=== PATIENT | female | born 1995 | race African-American/Black ===

== ENCOUNTER 2017-02-28 09:42 | Inpatient (IN) ==
[2017-02-28] MEDS ORDERED: ONDANSETRON 4 MG/2 ML VIAL IV PRN (12:26)
[2017-02-28 12:59] LABS: Basophils % 0.4 % (0.0-0.8); Eosinophils % 0.7 % (0.00-10.9); Hematocrit 38.5 VOL% (35.7-47.0); Hemoglobin 12.8 GM/DL (12.0-16.0); Immature Granulocytes % 0.5 %; Immature Granulocytes Absolute 0.03 #; Lymphocytes # 1.4 10*3/uL (1.4-4.0); Lymphocytes % 25.4 % (21.3-54.2); Mean Corpuscular HGB Conc 33.2 GM/DL (32-36); Mean Corpuscular Hemoglobin 27 PG (27-34); Mean Corpuscular Volume 81.2 FL (87-102); Mean Platelet Volume 10.9 FL (9.6-12.0); Monocytes # 0.5 10*3/uL (0.11-0.8); Monocytes % 8.8 % (1.7-12.7); Neutrophils # 3.6 10*3/uL (1.4-7.4); Neutrophils % 64.2 % (38.7-73.9); Platelet Count 205 T/CUMM (130-400); Red Blood Count 4.74 MC/CUMM (3.8-5.5); Red Cell Distribution Width 17.1 % (9.3-17.3); White Blood Count 5.6 T/CUMM (4-12)
[2017-02-28] MEDS: LACTATED RINGERS 1,000 ML IV SCH (13:04)
[2017-02-28] MEDS ORDERED: BUTORPHANOL 2 MG/ML VIAL IV PRN (14:08)
[2017-02-28] MEDS: AMPICILLIN INJ 2,000 MG in SODIUM CHLORIDE 0.9% 100 ML IV SCH ×2 (14:09→20:52)
[2017-02-28] MEDS ORDERED: diphenhydrAMINE 50 MG/1 ML VIAL IV PRN ×2 (17:43)
[2017-02-28] MEDS ORDERED: ONDANSETRON 4 MG/2 ML VIAL IV ONE (17:43)
[2017-02-28] MEDS ORDERED: ePHEDrine 50 MG/ML AMP IV PRN (17:43)
[2017-02-28] MEDS ORDERED: CITRIC ACID/SODIUM CITRATE 30 ML UDCUP PO ONE (17:43)
[2017-02-28] MEDS ORDERED: PROMETHAZINE 25 MG/1 ML VIAL IM ONE (17:43)
[2017-02-28] MEDS ORDERED: hydrOXYzine HCL 25 MG/1 ML VIAL IM PRN (17:43)
[2017-02-28] MEDS ORDERED: FAMOTIDINE 20 MG/2 ML VIAL IV ONE (17:43)
[2017-02-28] MEDS ORDERED: LACTATED RINGERS 1,000 ML IV SCH (18:00)
[2017-02-28] MEDS ORDERED: fentaNYL 2 MCG/ROPIV 0.2% EPID 150 ML EPIDURAL SCH (18:00)
[2017-02-28 21:22] LABS: Apearance,Urine CLEAR (Clear); Bilirubin,Urine Negative (Negative); Blood, Urine Negative (Negative); Glucose,Urine (UA) Negative (Negative); Ketones,Urine 20 mg/dL (Negative); Mucus,Urine Occasional /LPF (Occasional); Nitrite,Urine Negative (Negative); Protein,Urine Negative; RBC,Urine 9 /HPF (0-4); Squamous Epithelial Cell,Urine Occasional /HPF (0-10); Urine Color Yellow (Yellow); Urine Specific Gravity 1.013 (1.001-1.035); WBC,Urine 1 /HPF (0-6)
[2017-02-28] MEDS ORDERED: OXYTOCIN/LR 20 UNIT/1,000 ML BAG IV ONE (23:06)
[2017-02-28] MEDS ORDERED: OXYTOCIN/LR 20 UNIT/1,000 ML BAG IV SCH (23:30)
[2017-03-01] MEDS: LACTATED RINGERS 1,000 ML IV SCH (01:10)
[2017-03-01] MEDS: AMPICILLIN INJ 2,000 MG in SODIUM CHLORIDE 0.9% 100 ML IV SCH (02:11)
[2017-03-01] MEDS ORDERED: miSOPROStol 200 MCG TABLET ONE (04:03)
[2017-03-01] MEDS ORDERED: TRANEXAMIC ACID 1,000 MG/10 ML VIAL IV ONE (04:49)
[2017-03-01] MEDS ORDERED: LIDOCAINE 1% 50 ML VIAL ONE (04:49)
[2017-03-01] MEDS ORDERED: METHYLERGONOVINE 0.2 MG/1 ML AMP ONE (04:49)
[2017-03-01] MEDS ORDERED: BENZOCAINE/MENTHOL LOZENGE 18/BOX PO PRN (05:36)
[2017-03-01] MEDS ORDERED: BISACODYL 10 MG SUPP RECTAL PRN (05:36)
[2017-03-01] MEDS ORDERED: ONDANSETRON 4 MG/2 ML VIAL IV PRN (05:36)
[2017-03-01] MEDS ORDERED: ACETAMINOPHEN 325 MG TABLET PO PRN (05:36)
[2017-03-01] MEDS ORDERED: MAGNESIUM HYDROXIDE SUSP 30 ML UDCUP PO PRN (05:36)
[2017-03-01] MEDS ORDERED: LACTATED RINGERS 1,000 ML IV SCH (06:00)
[2017-03-01] MEDS: IBUPROFEN 800 MG TABLET PO PRN ×2 (07:11→19:28)
[2017-03-01] MEDS: oxyCODONE/ACETAMINOPHEN 5-325 MG TABLET PO PRN ×2 (07:12→19:27)
[2017-03-01] MEDS ORDERED: OXYTOCIN/LR 20 UNIT/1,000 ML BAG IV ONE (07:15)
[2017-03-01] MEDS: DOCUSATE SODIUM 100 MG CAPSULE PO PRN (08:54)
[2017-03-01] MEDS ORDERED: ceFAZolin 1,000 MG in SYRINGE 1 EACH IV SCH (12:00)
[2017-03-02 06:08] LABS: Basophils % 0.2 % (0.0-0.8); Eosinophils # 0.1 10*3/uL (0.0-0.87); Eosinophils % 0.6 % (0.00-10.9); Hematocrit 28.6 VOL% (35.7-47.0); Immature Granulocytes % 0.5 %; Immature Granulocytes Absolute 0.06 #; Lymphocytes # 2.6 10*3/uL (1.4-4.0); Lymphocytes % 23.6 % (21.3-54.2); Mean Corpuscular HGB Conc 31.5 GM/DL (32-36); Mean Corpuscular Hemoglobin 26 PG (27-34); Mean Corpuscular Volume 82.4 FL (87-102); Mean Platelet Volume 10.5 FL (9.6-12.0); Monocytes % 8.9 % (1.7-12.7); Neutrophils # 7.4 10*3/uL (1.4-7.4); Neutrophils % 66.2 % (38.7-73.9); Platelet Count 161 T/CUMM (130-400); Red Blood Count 3.47 MC/CUMM (3.8-5.5); Red Cell Distribution Width 16.9 % (9.3-17.3); White Blood Count 11.2 T/CUMM (4-12)
[2017-03-02] MEDS: IBUPROFEN 800 MG TABLET PO PRN ×2 (07:21→23:26)
[2017-03-02] MEDS: DOCUSATE SODIUM 100 MG CAPSULE PO PRN ×2 (07:22→23:26)
[2017-03-02] MEDS: FERROUS SULFATE 325 MG TABLET PO SCH (21:45)
[2017-03-03 07:45] VITALS: BP 105/75
[2017-03-03] MEDS ORDERED: DIPH/TET/ACEL PERT BOOSTER VACCINE 0.5 ML VIAL IM ONE (07:47)
[2017-03-03] MEDS: DOCUSATE SODIUM 100 MG CAPSULE PO PRN (08:46)
[2017-03-03] MEDS: FERROUS SULFATE 325 MG TABLET PO SCH (08:46)
== END 2017-03-03 13:00 | disposition home or self-care (01) | DRG 560 ==
LOC: N.ULTRA 09:42 → N.LD 09:59 → N.OB 03-01 15:21
PROVIDERS: ADMIT Obstetrics & Gynecology; ATTEND Obstetrics & Gynecology